=== PATIENT | female | born 1945 | race Caucasian/White ===

== ENCOUNTER 2019-02-21 08:54 | Day surgery (SDC) | payer MEDICARE, OTHER ==
[~2019-02-21] VITALS: Ht 165.1 cm; Wt 82.0 kg
[2019-02-21] MEDS ORDERED: ZOLOFT 50MG50 MG PO (09:10)
[2019-02-21] MEDS ORDERED: PRILOSEC 20MG20 MG PO (09:13)
[2019-02-21] MEDS ORDERED: MOBIC 7.5MG7.5 MG PO (09:14)
[2019-02-21] MEDS ORDERED: DESYREL 50MG50 MG PO (09:26)
[2019-02-21 09:27] VITALS: BP 135/74; PULSE 56; TEMP 97.4
--- NOTE | 2019-02-21 09:29 | NUR ---
TO RM AT 0900- CALL LIGHT IN REACH DAUGHTER AT BEDSIDE.
[2019-02-21 12:00] VITALS: BP 131/82; PULSE 65; TEMP 98.2
--- NOTE | 2019-02-21 12:00 | NUR ---
TO BAY 4 PER CART FROM ENDOSCOPY. ALERT ORIENTED X3, TALKING TO STAFF AND DAUGHTER. AMBULATED TO RECLINER WITH ASSIST AND TOLERATED WELL RECEIVED COFFEE AND MUFFIN.
[2019-02-21 12:15] VITALS: BP 147/60; PULSE 60
--- NOTE | 2019-02-21 12:15 | NUR ---
ATE 100% AND STILL SIPPING ON COFFEE.
--- NOTE | 2019-02-21 12:30 | NUR ---
AMBULATED TO BATHROOM WITH STAND BY ASSIST AND TOLERATED WELL. AMBULATED BACK TO . C/O FEELING BLOATED. ENCOURAGED PATIENT TO PASS GAS. DISCONTINUED IV AND INT- CATHETER INTACT. PATIENT GETTING DRESSED.
--- NOTE | 2019-02-21 12:53 | NUR ---
DR KAN IN TALKING WITH PATIENT AND HER DAUGHTER AT THIS TIME.
--- NOTE | 2019-02-21 13:10 | NUR ---
RECEIVED DISCHARGE INSTRUCTIONS AND VERBALIZED UNDERSTANDING
--- NOTE | 2019-02-21 13:21 | NUR ---
DISCHARGED PER WC BY NURSING STAFF TO PRIVATE CAR IN CARE OF DAUGHTER.
== END 2019-02-21 13:23 | disposition home or self-care (01) ==
LOC: SDCO 08:54
DX: K44.9 Diaphragmatic hernia without obstruction or gangrene (principal); D12.2 Benign neoplasm of ascending colon; R19.7 Diarrhea, unspecified; K21.9 Gastro-esophageal reflux disease without esophagitis; Z88.8 Allergy status to other drugs, medicaments and biological substances; Z88.5 Allergy status to narcotic agent; Z87.891 Personal history of nicotine dependence; E66.9 Obesity, unspecified; Z68.31 Body mass index [BMI] 31.0-31.9, adult; Z88.6 Allergy status to analgesic agent; F32.9 Major depressive disorder, single episode, unspecified
CPT/HCPCS: OP; J2704; J7030